=== PATIENT | male | born 1970 | race Caucasian/White ===

== ENCOUNTER 2017-12-15 12:35 | Outpatient (CLI) | payer OTHER | END 2017-12-15 13:08 | disposition home or self-care (01) | LOC: RAD 12:35 | DX: K29.70 Gastritis, unspecified, without bleeding (principal) ==

== ENCOUNTER 2019-09-18 16:10 | Outpatient (CLI) | payer OTHER | END 2019-09-18 16:40 | disposition home or self-care (01) | LOC: RAD 16:10 | DX: R05 Cough (principal) ==

== ENCOUNTER 2019-09-18 16:37 | Outpatient (CLI) | payer OTHER | END 2019-09-18 16:40 | disposition home or self-care (01) | LOC: EKG 16:37 | DX: I10 Essential (primary) hypertension (principal) ==

== ENCOUNTER 2022-12-15 11:21 | Outpatient (CLI) | payer OTHER | END 2022-12-15 11:33 | disposition home or self-care (01) | LOC: RAD 11:21 | PROVIDERS: ATTEND Otolaryngology | DX: J32.8 Other chronic sinusitis (principal) ==

== ENCOUNTER 2023-12-20 15:51 | Inpatient (IN) | payer OTHER ==
[~2023-12-20] VITALS: Ht 170.2 cm; Wt 72.6 kg
[2023-12-20] MEDS ORDERED: 0.9 % SODIUM CHLORIDE 1,000 ML IV SCH (17:30)
[2023-12-20] MEDS ORDERED: IOHEXOL 350 mgI/ML 50ML BOTT PO STA (17:34)
[2023-12-20] MEDS ORDERED: CIPROFLOXACIN IN 5 % DEXTROSE 400 MG/200 ML PIGGYBAG IV SCH (21:00)
[2023-12-21] MEDS ORDERED: METRONIDAZOLE/SODIUM CHLORIDE 500 MG/100 ML PIGGYBACK IV SCH (01:00)
[2023-12-21 06:07] LABS: PLT IN CITRATE 41 K/uL (150-450)
[2023-12-21 06:24] LABS: INR 1.02; PROTHROMBIN TIME 10.7 SECONDS (9.0-11.5)
[2023-12-21 06:29] LABS: PARTIAL THROMBOPLASTIN TIME 41.9 SECONDS (22.0-34.0)
[2023-12-21 06:35] LABS: HEMOGLOBIN 13.6 g/dL (13-16.00); MEAN CELL VOLUME 86.8 fL (80.0-100.00); MEAN CORPUSCULAR HEMOGLOBIN 30.3 pg (27.00-32.0); MEAN CORPUSCULAR HGB CONC 34.9 g/dl (32.0-36.0); RED BLOOD COUNT 4.49 M/uL (4.00-6.00); RED CELL DISTRIBUTION WIDTH 12.5 % (11.5-14.5)
[2023-12-21 06:41] LABS: ALBUMIN 3.6 gm/dL (3.4-5.0); BILIRUBIN TOTAL 0.69 mg/dL (0.3-1.2); CALCIUM 8.5 mg/dL (8.5-10.1); CREATININE SERUM 0.67 mg/dL (0.70-1.30); GFR 124.56; GLOBULINA 3.3 G/DL (2.4-3.5); POTASSIUM 3.89 mEq/L (3.5-5.1); TOTAL PROTEIN 6.9 gm/dL (6.4-8.2)
[2023-12-21 06:41] LABS: PH,URINE 7.5 (5.0-8.0); URINE APPEARANCE Clear; URINE BILIRRUBIN Negative (NEGATIVE); URINE BLOOD Negative; URINE COLOR Yellow; URINE GLUCOSE Negative (NEGATIVE); URINE LEUKOCYTE Negative; URINE NITRATE Negative; URINE PROTEIN Trace (NEGATIVE)
[2023-12-21 06:45] LABS: URINE RBC 2.5 uL (0.0-20.8)
[2023-12-21 06:54] LABS: URINE EPITHELIAL CELLS 0.4 uL (0.0-38.8); URINE WBC 1.3 uL (0.0-23.2)
[2023-12-21 08:42] LABS: PLATELET COUNT 37 K/uL (150-450)
[2023-12-21] MEDS ORDERED: PANTOPRAZOLE SODIUM 40 MG/VIAL VIAL IV SCH (09:00)
[2023-12-21] MEDS ORDERED: LACTOBACILLUS ACIDOPHILUS 1 CAP CAP PO SCH (09:00)
[2023-12-22 07:26] LABS: HEMATOCRIT 37.5 % (39.0-48.0); HEMOGLOBIN 13.3 g/dL (13-16.00); MEAN CELL VOLUME 87.9 fL (80.0-100.00); MEAN CORPUSCULAR HEMOGLOBIN 31.2 pg (27.00-32.0); MEAN CORPUSCULAR HGB CONC 35.5 g/dl (32.0-36.0); RED BLOOD COUNT 4.26 M/uL (4.00-6.00); RED CELL DISTRIBUTION WIDTH 12.2 % (11.5-14.5)
[2023-12-22 07:31] LABS: PLATELET COUNT 52 K/uL (150-450)
[2023-12-22 07:55] LABS: ALBUMIN 3.4 gm/dL (3.4-5.0); BILIRUBIN TOTAL 0.7 mg/dL (0.3-1.2); CALCIUM 8.6 mg/dL (8.5-10.1); CREATININE SERUM 0.65 mg/dL (0.70-1.30); GLOBULINA 3.2 G/DL (2.4-3.5); POTASSIUM 4.47 mEq/L (3.5-5.1); TOTAL PROTEIN 6.6 gm/dL (6.4-8.2)
[2023-12-22] MEDS ORDERED: VITAMIN C500 M1 PO (10:44)
[2023-12-22] MEDS ORDERED: FISH OIL 1,001000 MG PO (10:44)
[2023-12-22] MEDS ORDERED: TURMERIC 500 M1 EACH PO (10:45)
[2023-12-22] MEDS ORDERED: VITAMIN B COMPLEX 1 EACH PO SCH (10:58)
[2023-12-22] MEDS ORDERED: Cyanocobalamin/Mecobalamin 1 TAB.SL SL SCH (10:58)
[2023-12-22] MEDS ORDERED: THIAMINE HCL 100 MG/ML 2 ML VIAL IV SCH (11:00)
[2023-12-23 07:36] LABS: ALBUMIN 3.3 gm/dL (3.4-5.0); BILIRUBIN TOTAL 0.7 mg/dL (0.3-1.2); CALCIUM 8.3 mg/dL (8.5-10.1); CREATININE SERUM 0.67 mg/dL (0.70-1.30); GFR 124.56; POTASSIUM 4.35 mEq/L (3.5-5.1); TOTAL PROTEIN 6.3 gm/dL (6.4-8.2)
[2023-12-23 09:17] LABS: HEMOGLOBIN 12.9 g/dL (13-16.00); MEAN CELL VOLUME 87.7 fL (80.0-100.00); MEAN CORPUSCULAR HEMOGLOBIN 31.5 pg (27.00-32.0); MEAN CORPUSCULAR HGB CONC 35.9 g/dl (32.0-36.0); RED BLOOD COUNT 4.11 M/uL (4.00-6.00); RED CELL DISTRIBUTION WIDTH 12.2 % (11.5-14.5)
[2023-12-23 09:25] LABS: PLATELET COUNT 107 K/uL (150-450)
== END 2023-12-23 12:49 | disposition home or self-care (01) | DRG 813 ==
LOC: MEDJ 15:51
PROVIDERS: ADMIT Internal Medicine; ATTEND Internal Medicine
PROC: BW21YZZ Computerized Tomography (CT Scan) of Abdomen and Pelvis using Other Contrast (ICD-10-PCS; principal; 2023-12-20)
PROC: 30233R1 Transfusion of Nonautologous Platelets into Peripheral Vein, Percutaneous Approach (ICD-10-PCS; 2023-12-21)
DX: D69.6 Thrombocytopenia, unspecified (principal); A90 Dengue fever [classical dengue]; Z86.19 Personal history of other infectious and parasitic diseases; B34.9 Viral infection, unspecified; K76.0 Fatty (change of) liver, not elsewhere classified

== ENCOUNTER 2024-06-12 09:51 | Outpatient (CLI) | payer OTHER ==
[~2024-06-12 09:51] MED LIST: FISH OIL 1,001000 MG PO; TURMERIC 500 M1 EACH PO; VITAMIN C500 M1 PO
== END 2024-06-12 10:09 | disposition home or self-care (01) ==
LOC: RAD 09:51
DX: M15.0 Primary generalized (osteo)arthritis (principal)

== ENCOUNTER 2025-01-13 10:51 | Outpatient (CLI) | payer OTHER | END 2025-01-13 10:58 | disposition home or self-care (01) | LOC: RAD 10:51 | DX: M19.90 Unspecified osteoarthritis, unspecified site (principal); F17.210 Nicotine dependence, cigarettes, uncomplicated; K44.9 Diaphragmatic hernia without obstruction or gangrene; Z78.9 Other specified health status; Z86.19 Personal history of other infectious and parasitic diseases ==

== ENCOUNTER → 2025-02-17 | Outpatient (CLI) | payer OTHER | END | disposition home or self-care (01) | LOC: RAD 09:18 | PROVIDERS: ATTEND Internal Medicine | DX: A49.3 Mycoplasma infection, unspecified site (principal); R79.89 Other specified abnormal findings of blood chemistry; M19.90 Unspecified osteoarthritis, unspecified site; Z12.9 Encounter for screening for malignant neoplasm, site unspecified; F17.210 Nicotine dependence, cigarettes, uncomplicated; K44.9 Diaphragmatic hernia without obstruction or gangrene; Z78.9 Other specified health status; Z86.19 Personal history of other infectious and parasitic diseases ==

== ENCOUNTER 2025-05-06 10:36 | Outpatient (CLI) | payer OTHER | END 2025-05-06 10:44 | disposition home or self-care (01) | LOC: SONOGRAMA 10:36 | PROVIDERS: ATTEND Internal Medicine | DX: M25.511 Pain in right shoulder (principal); M19.90 Unspecified osteoarthritis, unspecified site; M25.611 Stiffness of right shoulder, not elsewhere classified ==

== ENCOUNTER 2025-06-15 11:38 | Outpatient (CLI) | payer OTHER | END 2025-06-15 11:46 | disposition home or self-care (01) | LOC: RAD 11:38 | PROVIDERS: ATTEND Internal Medicine | DX: R06.02 Shortness of breath (principal) ==